=== PATIENT | male | born 1995 | race Caucasian/White ===

== ENCOUNTER 2020-12-19 21:17 | Inpatient (IN) ==
[2020-12-19 23:13] LABS: ABS Basophils 0.1 10^3/ul (0-0.2); ABS Eosinophils 0.1 10^3/ul (0-0.6); ABS Lymphocytes 2.1 10^3/ul (1.0-4.8); ABS Neutrophils 10.7 10^3/ul (1.5-7.7); Eosinophil % 0.4 %; Hematocrit 49 % (42-52); Hemoglobin 16.8 g/dL (14.0-18.0); Lymphocyte % 15.3 %; Mean Corpuscular HGB Conc 34 g/dL (31-36); Mean Corpuscular Hemoglobin 30 pg (27-31); Mean Corpuscular Volume 89 fL (80-94); Mean Platelet Volume 9.9 fL (7.4-10.4); Platelet Count 238 10^3/uL (150-450); Red Blood Count 5.53 10^6 /uL (4.18-5.48); Red Cell Distribution Width 13 % (10-15)
[2020-12-19 23:20] LABS: INR 1.17 (0.82-1.09)
[2020-12-19 23:24] LABS: ALT 10 U/L (7-52); AST 19 U/L (13-39); Albumin 5.1 g/dL (3.2-5.2); Albumin/Globulin Ratio 1.7 (1-3); Alkaline Phosphatase 43 U/L (34-104); Anion Gap 8 mmol/L (2-11); BUN/Creatinine Ratio 15.3 (8-20); Blood Urea Nitrogen 19 mg/dL (6-24); CO2 Carbon Dioxide 28 mmol/L (22-32); Calcium 10.2 mg/dL (8.6-10.3); Chloride 102 mmol/L (101-111); EGFR African American 87.4 (>60); EGFR Non-African American 72.2 (>60); Glucose 125 mg/dL (70-100); Sodium 138 mmol/L (135-145); Total Protein 8.1 g/dL (6.4-8.9)
[2020-12-19 23:37] LABS: Troponin I 0.16 ng/mL (<0.03)
[2020-12-20] MEDS ORDERED: NS 0.9% 1000 ml BAG 1,000 ML IV ONE (00:04)
[2020-12-20 01:34] LABS: Troponin I 0.44 ng/mL (<0.03)
[2020-12-20 01:47] LABS: Urine Appearance Cloudy; Urine Bilirubin Negative (Negative); Urine Blood Negative (Negative); Urine Color Yellow; Urine Glucose Negative (Negative); Urine Ketones Negative (Negative); Urine Nitrite Negative (Negative); Urine Protein Negative (Negative); Urine Specific Gravity 1.009 (1.002-1.030); Urine Urobilinogen Negative (Negative)
[2020-12-20 01:55] LABS: Urine Benzodiazepine Screen None Detected (None Detect); Urine Cannabinoids Screen None Detected (None Detect); Urine Opiates Screen None Detected (None Detect)
[2020-12-20] MEDS ORDERED: Iohexol 350 (CONTRAST) 500 ML MDV IV ONE (02:14)
[2020-12-20] MEDS ORDERED: Heparin DRIP 25,000 UNITS BAG 25,000 UNITS/500 ML BAG IV SCH (04:15)
[2020-12-20 04:46] LABS: Blood Urea Nitrogen 15 mg/dL (6-24); C Reactive Protein < 1.00 mg/L (<8.01); Cholesterol 139 mg/dL; EGFR African American 114.7 (>60); EGFR Non-African American 94.8 (>60); HDL Cholesterol 42.9 mg/dL; LDL Cholesterol 85 mg/dL; Triglycerides 58 mg/dL
[2020-12-20 04:59] LABS: ABS Eosinophils 0.1 10^3/ul (0-0.6); ABS Monocytes 0.9 10^3/ul (0-0.8); Eosinophil % 0.6 %; Hematocrit 49 % (42-52); Hemoglobin 16.5 g/dL (14.0-18.0); Lymphocyte % 18.2 %; Mean Corpuscular HGB Conc 34 g/dL (31-36); Mean Corpuscular Hemoglobin 30 pg (27-31); Mean Corpuscular Volume 89 fL (80-94); Mean Platelet Volume 9.5 fL (7.4-10.4); Platelet Count 224 10^3/uL (150-450); Red Blood Count 5.47 10^6 /uL (4.18-5.48); Red Cell Distribution Width 13 % (10-15)
[2020-12-20] MEDS ORDERED: Heparin 5000 UNITS/ML 1 mL VIAL IV SCH (05:00)
[2020-12-20 05:05] LABS: Troponin I 0.34 ng/mL (<0.03)
[2020-12-20 05:56] LABS: Magnesium 2.2 mg/dL (1.9-2.7)
[2020-12-20 10:00] LABS: TSH Ultra Thyroid Stim Horm 1.85 mcIU/mL (0.34-5.60)
[2020-12-20 10:02] LABS: Free T3 3.4 pg/mL (2.5-3.9); Free T4 1.3 ng/dL (0.61-1.12)
[2020-12-21 05:51] LABS: ABS Eosinophils 0.1 10^3/ul (0-0.6); ABS Lymphocytes 2.2 10^3/ul (1.0-4.8); ABS Monocytes 0.8 10^3/ul (0-0.8); ABS Neutrophils 4.7 10^3/ul (1.5-7.7); Eosinophil % 1.5 %; Hematocrit 48 % (42-52); Hemoglobin 16.2 g/dL (14.0-18.0); Lymphocyte % 28.1 %; Mean Corpuscular HGB Conc 34 g/dL (31-36); Mean Corpuscular Hemoglobin 30 pg (27-31); Mean Corpuscular Volume 90 fL (80-94); Mean Platelet Volume 9.4 fL (7.4-10.4); Platelet Count 191 10^3/uL (150-450); Red Blood Count 5.31 10^6 /uL (4.18-5.48); Red Cell Distribution Width 13 % (10-15); White Blood Count 7.8 10^3/uL (3.5-10.8)
[2020-12-21 06:12] LABS: Calcium 9.5 mg/dL (8.6-10.3); EGFR African American 87.4 (>60); EGFR Non-African American 72.2 (>60); Magnesium 2.3 mg/dL (1.9-2.7); Potassium 4.5 mmol/L (3.5-5.0)
[2020-12-21 11:08] VITALS: BP 121/59
== END 2020-12-21 15:29 | disposition home or self-care (01) | DRG 309 ==
LOC: ED 21:17 → MEDTELE 12-20 03:03
PROVIDERS: ADMIT Internal Medicine; ATTEND Pediatrics